=== PATIENT | female | born 1995 | race Caucasian/White ===

== ENCOUNTER 2018-10-15 00:51 | Inpatient (IN) | payer OTHER ==
[2018-10-15 01:37] VITALS: BMI 25.4
[2018-10-15] MEDS ORDERED: Butorphanol Tartrate 1 MG/ML VIAL SLOW IVP PRN (02:22)
[2018-10-15] MEDS ORDERED: Promethazine HCl 25 MG/ML VIAL IM PRN ×2 (02:22→10:15)
[2018-10-15] MEDS ORDERED: Acetaminophen 500 MG TAB PO PRN (02:22)
[2018-10-15] MEDS ORDERED: Zolpidem Tartrate 5 MG TAB PO PRN (02:22)
[2018-10-15] MEDS: Lactated Ringer's 1,000 ML IV SCH ×3 (02:26→14:18)
[2018-10-15] MEDS ORDERED: Lidocaine 1% (PF) 30 ML VIAL SC PRN (02:30)
[2018-10-15] MEDS ORDERED: Misoprostol 200 MCG TAB RC PRN (02:30)
[2018-10-15] MEDS ORDERED: Ibuprofen 800 MG TAB PO PRN (02:30)
[2018-10-15] MEDS ORDERED: Carboprost 250 MCG/ML AMP IM PRN (02:30)
[2018-10-15] MEDS ORDERED: Methylergonovine 0.2 MG/ML VIAL IM PRN (02:30)
[2018-10-15] MEDS ORDERED: HYDROcodone/Acetaminophen 5/325 mg Tablet PO PRN ×4 (02:30→19:36)
[2018-10-15] MEDS ORDERED: NS w/ Oxytocin 10 units 500 ML IV SCH ×2 (02:30)
[2018-10-15] MEDS: Ondansetron PF 4 MG/2 ML Vial IVP PRN ×3 (02:58→15:27)
[2018-10-15 03:23] LABS: Hemoglobin 11.7 g/dL (12.0-16.0); Mean Corpuscular Hemoglobin 35.5 pg (27.0-31.0); Mean Corpuscular Volume 98.5 fL (78.0-98.0); Mean Platelet Volume 9.5 fL (7.4-10.4); Platelet Count 151 thou/uL (130-400); RBC Distribution Width 12.5 % (11.5-14.5); Red Blood Cell (RBC) Count 3.29 mill/uL (4.20-5.40); White Blood Cell (WBC) Count 6.4 thou/uL (4.8-10.8)
[2018-10-15 03:57] LABS: HBSAg Index 0.31 S/CO (0-0.99); Hep B Surf Ag Non-Reactive S/CO (NonReactive)
[2018-10-15] MEDS ORDERED: Fentanyl 4 mcg/Bup 0.1% Cadd 100 ML ONE (09:30)
[2018-10-15] MEDS ORDERED: ePHEDrine/0.9% NaCl/PF SYRINGE 50 mg/10 ml SLOW IVP PRN (10:15)
[2018-10-15] MEDS ORDERED: Naloxone HCl 0.4 mg/ml Vial IVP PRN ×2 (10:15)
[2018-10-15] MEDS ORDERED: Lactated Ringer's 500 ML IV PRN (10:15)
[2018-10-15] MEDS ORDERED: Eucerin (Mineral Oil/Petrolatum,White) 30 gm Jar TOP PRN (10:15)
[2018-10-15] MEDS ORDERED: Acetaminophen 325 MG TAB PO PRN (10:15)
[2018-10-15] MEDS ORDERED: Fentanyl 4 mcg/Bupivacaine 0.1% Cassette 100 ML EPIDURAL SCH (10:15)
[2018-10-15] MEDS ORDERED: Ondansetron PF 4 MG/2 ML Vial IVP PRN ×2 (10:15→19:36)
[2018-10-15] MEDS ORDERED: diphenhydrAMINE 50 MG/ML VIAL IVP PRN (10:15)
[2018-10-15] MEDS ORDERED: Communication Order-Pharmacy FS SCH (10:15)
--- NOTE | 2018-10-15 10:50 | PDOC.LDHP ---
Labor and Delivery H&P Chief complaint: scheduled induction (nephrolithiasis 39 weeks) HPI: Pt is a 23yo @ 39 weeks who was seen at a hospital in [place] late Jb evening at 38.5 weeks with exacerbation of nephrolithiasis. Pt counseled and desires IOL now @ 39 weeks. Current gestational age (weeks): 39 Due date: 10/22/18 Dating criteria: first trimester ultrasound Grav: 1 Para: 0 Current complications: other (nephrolithiasis) Past Medical History: anxiety, kidney stones, ADHD Current medications: pre-vahe vitamins Allergies/Adverse Reactions: Allergies Allergy/AdvReac Type Severity Reaction Status Date / Time No Known Allergies Allergy Unverified 10/15/18 01:25 Social history: none - Physical Exam Vital signs reviewed and normal: yes General: resting Heart: RRR Lungs: CTAB Abdomen: gravid Extremeties: no edema FHT: category 1 - Vaginal Exam cm dilated: 2 (on day of admit) Effacement: 75% Station: -1 - OB Labs Blood type: B RH: positive Antibody Screen: negative HIV: negative RPR: negative HEPSAg: negative 1 hour GCT: negative GBS: negative Rubella: immune Additional Labs: NIPT AFP low risk - Assessment L&D Assessment: medically indicated induction (nephrolithiasis @ 39 weeks) - Plan Plan: admit to L&D, cervical ripening, labor augmentation if indicated, informed consent obtained, anesthesia consult for pain management -: A/P: IOL for exacerbation of nephrolithiasis @ 39 weeks with favorable cervix. SROM approx 0715 w forebag ruptured on admit exam, clear fluid. Epidural at pt request, pitocin for IOL planned.
[2018-10-15] MEDS ORDERED: Bupivacaine HCl 0.25%/Epi 0.0005/PF 10 ML VIAL FS ONE (11:11)
[2018-10-15] MEDS: NS / Oxytocin 40 units/1000ml 1,000 ML IV SCH ×2 (17:01→18:53)
--- NOTE | 2018-10-15 17:09 | PDOC.OPDEL ---
OB Operative/Delivery Note Delivery Dr/Surgeon: Mayank Pre-Delivery Diagnosis: medically indicated induction (nephrolithiasis @ 39 weeks) Procedure/Post Delivery Dx: spontaneous vaginal delivery Weeks gestation: 39 - Findings A Sex: female - 1 min: 8 - 5 min: 9 - Additional Findings/Plan Placenta delivered: spontaneous Repaired Obstetrical Laceration: left labial Estimated blood loss: 700ml Compilations/Other Findings: -loose nuchal reduced at perineum -uterine atony relieved w methergine, uterine massage and pitocin Post delivery plan: routine recovery
[2018-10-15] MEDS ORDERED: Milk Of Magnesia 30 ML UDCUP PO PRN (19:36)
[2018-10-15] MEDS ORDERED: diphenhydrAMINE 25 MG CAP PO PRN (19:36)
[2018-10-15] MEDS ORDERED: Benzocaine/Menthol 20-0.5% 60 ML CAN TOP PRN (19:36)
[2018-10-15] MEDS ORDERED: Preparation H Ointment 28 GM TUBE PR PRN (19:36)
[2018-10-15] MEDS ORDERED: Bisacodyl 10 MG SUPP PR PRN (19:36)
[2018-10-15] MEDS ORDERED: NS / Oxytocin 40 units/1000ml 1,000 ML IV SCH (19:36)
[2018-10-15] MEDS ORDERED: Lanolin Ointment 7 GM TUBE TOP PRN (19:36)
[2018-10-15] MEDS ORDERED: Adacel (T-DAP) 0.5 ML SYRINGE IM ONE (19:36)
[2018-10-16] MEDS: Ibuprofen 800 MG TAB PO SCH ×4 (02:39→21:32)
[2018-10-16] MEDS: Docusate Calcium (SURFAK) 240 MG CAP PO SCH ×3 (02:40→21:32)
[2018-10-16] MEDS: Lactated Ringer's 1,000 ML IV SCH (05:36)
[2018-10-16 06:07] LABS: Hemoglobin 8.7 g/dL (12.0-16.0); Mean Corpuscular HGB CONC 35.5 g/dL (32.0-36.0); Mean Corpuscular Hemoglobin 35.3 pg (27.0-31.0); Mean Corpuscular Volume 99.4 fL (78.0-98.0); Mean Platelet Volume 9.4 fL (7.4-10.4); Platelet Count 124 thou/uL (130-400); RBC Distribution Width 12.6 % (11.5-14.5); Red Blood Cell (RBC) Count 2.47 mill/uL (4.20-5.40); White Blood Cell (WBC) Count 9.7 thou/uL (4.8-10.8)
[2018-10-16] MEDS: Ferrous Sulfate 325 MG TAB PO SCH ×2 (09:50→17:39)
[2018-10-16] MEDS: Prenatal Vitamin 1 TAB PO SCH (09:50)
[2018-10-16] MEDS ORDERED: Misoprostol 200 MCG TAB ONE (23:26)
[2018-10-16] MEDS ORDERED: Carboprost 250 MCG/ML AMP ONE (23:27)
[2018-10-16] MEDS ORDERED: Methylergonovine 0.2 MG/ML VIAL ONE (23:27)
[2018-10-17] MEDS: Ibuprofen 800 MG TAB PO SCH ×2 (05:35→13:31)
[2018-10-17 08:05] VITALS: BP 119/58; TEMP 98.2
--- NOTE | 2018-10-17 09:04 | PDOC.PP ---
Post Progress Note Post Day #: 2 Subjective: doing well, no concerns PP, ready for DC PO intake tolerated: yes Flatus: yes Ambulation: yes Vital Signs (12 hours) Temp Pulse Resp BP Pulse Ox 10/17/18 08:04 98.2 F 58 L 20 119/58 L 97 Weight Weight 130 lb - Physical Examination General: NAD Respiratory: non-labored breathing Fundus firm & at: below umb Skin: no rash Psychiatric: A&Ox3, normal affect Result Diagrams: 10/16/18 05:33 Additional Labs: Post Labs Blood Type B POSITIVE 10/15/18 02:16 Hep Bs Antigen Non-Reactive S/CO (NonReactive) 10/15/18 02:16 (1) (spontaneous vaginal delivery) Code(s): O80 - ENCOUNTER FOR FULL-TERM UNCOMPLICATED DELIVERY Status: Acute (2) Nephrolithiasis Status: Acute (3) Anemia, Code(s): O90.81 - ANEMIA OF THE PUERPERIUM Status: Acute - Assessment/Plan PPD2 doing well, iron for asx anemia, plan for DC today.
[2018-10-17] MEDS: Prenatal Vitamin 1 TAB PO SCH (09:07)
[2018-10-17] MEDS: Ferrous Sulfate 325 MG TAB PO SCH ×2 (09:07→15:52)
[2018-10-17] MEDS: Docusate Calcium (SURFAK) 240 MG CAP PO SCH (09:07)
--- NOTE | 2018-10-17 11:46 | PDOC.PP ---
Post Progress Note Post Day #: 1 Subjective: Patient is doing well, just tired. is very sleepy, not latching great. PO intake tolerated: yes Flatus: yes Ambulation: yes Vital Signs (12 hours) Temp Pulse Resp BP Pulse Ox 10/17/18 08:04 98.2 F 58 L 20 119/58 L 97 Weight Weight 130 lb - Physical Examination General: NAD Cardiovascular: no m/r/g, RRR Respiratory: non-labored breathing Abdominal: lochia (minimal) Extremities: negative homans (B) Skin: no rash Neurological: no gross focal deficits Psychiatric: A&Ox3, normal affect Result Diagrams: 10/16/18 05:33 Additional Labs: Post Labs Blood Type B POSITIVE 10/15/18 02:16 Hep Bs Antigen Non-Reactive S/CO (NonReactive) 10/15/18 02:16 - Assessment/Plan A: G1 now P1 SP with PPH and resulting anemia P: routine care. hg stable at 8.7 . pt is asymptomatic. Will continue iron supplementation help with IBCLC needed - inst to feed now as baby was cuing Discharge home tomorrow is stable.
== END 2018-10-17 16:30 | disposition home or self-care (01) | DRG 806 ==
LOC: L&D 00:51 → 3SW 22:43 → EDSTATUS 10-22 15:01
PROVIDERS: ADMIT Obstetrics & Gynecology; ATTEND Obstetrics & Gynecology
PROC: 10E0XZZ Delivery of Products of Conception, External Approach (ICD-10-PCS; principal; 2018-10-15)
PROC: 3E033VJ Introduction of Other Hormone into Peripheral Vein, Percutaneous Approach (ICD-10-PCS; 2018-10-15)
PROC: 0UQMXZZ Repair Vulva, External Approach (ICD-10-PCS; 2018-10-15)
DX: O26.833 Pregnancy related renal disease, third trimester (principal); O72.1 Other immediate postpartum hemorrhage; Z37.0 Single live birth; D62 Acute posthemorrhagic anemia; N20.0 Calculus of kidney; O99.344 Other mental disorders complicating childbirth; O90.81 Anemia of the puerperium; F41.9 Anxiety disorder, unspecified; F90.9 Attention-deficit hyperactivity disorder, unspecified type; O70.0 First degree perineal laceration during delivery; O76 Abnormality in fetal heart rate and rhythm complicating labor and delivery; O69.81X0 Labor and delivery complicated by cord around neck, without compression, not applicable or unspecified; Z3A.39 39 weeks gestation of pregnancy
CPT/HCPCS: 36415; 51702; 85027; 86850; 86900; 86901; 87340; 90715; J2210; J2405; J3490

== ENCOUNTER 2020-07-04 08:00 | Emergency (ER) | payer OTHER ==
[2020-07-04] MEDS ORDERED: Ketorolac Tromethamine 30 MG/ML VIAL ONE (09:26)
== END 2020-07-04 09:35 | disposition home or self-care (01) ==
LOC: ERS 08:00
DX: M79.605 Pain in left leg (principal); R20.0 Anesthesia of skin; Z79.899 Other long term (current) drug therapy; J45.909 Unspecified asthma, uncomplicated
CPT/HCPCS: 99283; J1885